=== PATIENT | female | born 1945 | race Caucasian/White ===

== ENCOUNTER → 2016-06-04 | Outpatient (CLI) | payer MEDICARE ==
--- NOTE | 2016-06-05 18:13 | Diagnostic Imaging Report ---
Bilateral screening mammogram. The current study was also evaluated with a Computer Aided Detection (CAD) system. INDICATION: Screening. No current complaints stated on the questionnaire. COMPARISON: 05/08/15. FINDINGS: The breasts are composed of scattered fibroglandular densities. There are occasional benign-appearing calcifications. Allowing for technique and positional differences, no suspicious change is seen. IMPRESSION: No significant change. ACR BI-RADS Category 2: Benign findings. Result letter will be mailed to the patient. Note: At least 10% of breast cancer is not imaged by mammography. Dictated by: Dictated on workstation # [id number]
== END ==
LOC: RAD 09:33
PROVIDERS: ATTEND Obstetrics & Gynecology
DX: Z12.31 Encounter for screening mammogram for malignant neoplasm of breast (principal)
CPT/HCPCS: 77067

== ENCOUNTER → 2017-06-26 | Outpatient (CLI) | payer MEDICARE ==
--- NOTE | 2017-06-26 18:09 | Diagnostic Imaging Report ---
INDICATION: Digital mammogram bilateral screening with 3-D tomosynthesis. This study was compared to the prior exams of 06/04/16, 05/08/15 and 03/15/14. At this time, there are no current complaints. The current study was also evaluated with a Computer Aided Detection (CAD) system. FINDINGS: There is a mild amount of fibroglandular tissue present in both breasts, similar to the prior exam. No primary or secondary sign of malignancy is noted. 3D tomographic images fail to show any sign of malignancy. IMPRESSION: There is no radiographic evidence for malignancy. ACR BI-RADS Category 1: Negative Result letter will be mailed to the patient. Note: At least 10% of breast cancer is not imaged by mammography. Dictated by: Dictated on workstation # [id number]
== END ==
LOC: RAD 07:44
PROVIDERS: ATTEND Obstetrics & Gynecology
DX: Z12.31 Encounter for screening mammogram for malignant neoplasm of breast (principal)
CPT/HCPCS: 77067

== ENCOUNTER 2018-01-23 13:15 | Outpatient (CLI) | payer MEDICARE ==
[~2018-01-23] VITALS: Ht 167.6 cm; Wt 95.3 kg
[~2018-01-23 13:15] MED LIST: ASPI-586 PO; ESTR1TAB24 PO; GLIP10TA24 PO; LEVO100T7 PO; LISI-552 PO; LORA10TA7 PO; METF-398 PO; MULT-35 PO; PARO20TA5 PO; SIMV20TA3 PO
== END 2018-01-23 13:54 | disposition home or self-care (01) ==
LOC: PREOP 13:15
PROVIDERS: ATTEND Surgery
DX: Z01.818 Encounter for other preprocedural examination (principal)

== ENCOUNTER 2018-01-27 06:50 | Day surgery (SDC) | payer MEDICARE ==
[~2018-01-27] VITALS: Ht 167.6 cm; Wt 95.3 kg
[2018-01-27] MEDS ORDERED: LACTATED RINGERS 1,000 ML IV ONE (07:03)
[2018-01-27] MEDS ORDERED: LACTATED RINGERS 1,000 ML IV STA (07:21)
[2018-01-27 07:23] VITALS: BP 141/77
[2018-01-27] MEDS ORDERED: PROPOFOL INJECTION 50 ML IV ONE (07:36)
--- NOTE | 2018-01-27 07:58 | Progress Note-Pre Operative ---
Pre-Operative Progress Note H&P Reviewed The H&P was reviewed, patient examined and no changes noted. Date Seen by Provider: Jan 27, 2018 Time Seen by Provider: 07:57 Date H&P Reviewed: Jan 27, 2018 Time H&P Reviewed: 07:57 Pre-Operative Diagnosis: screening colonoscopy, abnormal ct scan finding history MARICARMEN CHRISTY DO Jan 27, 2018 07:58
--- NOTE | 2018-01-27 08:46 | Progress Note-Post Operative ---
Post-Operative Progess Note Surgeon (s)/Industrial Sewer (s) Surgeon MARICARMEN CHRISTY DO Industrial Sewer: na Pre-Operative Diagnosis screening colonoscopy, abnormal ct scan finding history Post-Operative Diagnosis ascending colon polyp, min diverticulosis, anorrectal inflammation, internal hemorrhoids Procedure & Operative Findings Date of Procedure 01/27/18 Procedure Performed/Findings colonoscopy with hot bx polypectomy and cold biopsy anorectal junction Anesthesia Type per director of programming Estimated Blood Loss Estimated blood loss (mL): scant Specimens/Packing Specimens Removed ascending colon polyp, anorectal junction MARICARMEN CHRISTY DO Jan 27, 2018 08:46
--- NOTE | 2018-01-27 08:51 | Discharge Inst-Simple/Standard ---
Discharge Inst-Standard Patient Instructions/Follow Up Plan of Care/Instructions/FU: 2 weeks zaid Activity as Tolerated: Yes Discharge Diet: Regular Diet (high fiber) MARICARMEN CHRISTY DO Jan 27, 2018 08:51
[2018-01-27 09:00] VITALS: BP 113/62
[2018-01-27 09:20] VITALS: BP 127/69
[2018-01-27 09:29] VITALS: BP 127/69
--- NOTE | 2018-01-27 12:58 | Anesthesia-General Post-Op ---
MAC Patient Condition Mental Status/LOC: Same as Preop Cardiovascular: Satisfactory Nausea/Vomiting: Absent Respiratory: Satisfactory Pain: Controlled Complications: Absent Post Op Complications Complications None Follow Up Care/Instructions Patient Instructions None needed. Anesthesiology Discharge Order Discharge Order Patient is doing well, no complaints, stable vital signs, no apparent adverse anesthesia problems. No complications reported per nursing. RON HUNG CRNA Jan 27, 2018 12:58
--- NOTE | 2018-01-27 14:07 | OPERATIVE REPORT ---
DATE OF SERVICE: 01/27/2018 PREOPERATIVE DIAGNOSES: Screening colonoscopy, history of abnormal CT scan finding. POSTOPERATIVE DIAGNOSES: Ascending colon polyp, minimal diverticulosis, anorectal inflammation, internal hemorrhoids. PROCEDURES: Colonoscopy with hot biopsy polypectomy of ascending colon polyp and cold biopsy of anorectal junction. SURGEON: Maricarmen Ackerman DO ANESTHESIA: Per RULING MACHINE SET UP OPERATOR. ESTIMATED BLOOD LOSS: Scant. COMPLICATIONS: None. INDICATIONS: The patient is a 72-year-old female due for colonoscopy. She understands the risks and benefits of procedure and wished to proceed with procedure. Consent was signed and on the chart. DESCRIPTION OF PROCEDURE: The patient was taken to the endoscopy suite, placed in left lateral recumbent position. Timeout was performed. A digital rectal exam was performed. Large, slightly prolapsing internal hemorrhoids present. The area will be reduced. No polyps, masses or ulcerations. Scope was inserted into the rectum and advanced all the way to the cecum with minimal difficulty. Prep was adequate. Scope was then slowly retracted back. There were no polyps, masses or ulcerations in the cecum. In the ascending colon, a small polyp was present, which hot biopsy polypectomy was performed. Scope was continuously retracted back. There were no polyps, masses or ulcerations within the remainder of the ascending colon, transverse colon, descending colon. Within the sigmoid is a very minimal amount of diverticulosis present. There are no polyps, masses or ulcerations. Once in the rectum, scope was also retroflexed noting some anorectal inflammation, which cold biopsy was performed. The hemorrhoids were also noted. No other abnormal findings. Scope was returned to its normal position, slowly withdrawn until completely removed. The patient tolerated the procedure well without any complications. She was taken to recovery room in stable condition. RECOMMENDATIONS: The patient will need repeat colonoscopy in 5 years. Any issues before that, will be seen at that time. Also would recommend high-fiber diet due to diverticulosis. The patient also with fairly significant hemorrhoids. We will discuss if she elect to continue with the . We will discuss surgical options. Further recommendations pending biopsy results. Job ID: [id number] DocumentID: [id number] Dictated Date: 01/27/2018 08:49:35 Body Component Engineer Date: 01/27/2018 11:29:45 Dictated By: MARICARMEN ACKERMAN DO
== END 2018-01-27 09:29 | disposition home or self-care (01) ==
LOC: ENDO 06:50
PROVIDERS: ATTEND Surgery
DX: Z12.11 Encounter for screening for malignant neoplasm of colon (principal); D12.2 Benign neoplasm of ascending colon; K57.30 Diverticulosis of large intestine without perforation or abscess without bleeding; K62.89 Other specified diseases of anus and rectum; K64.8 Other hemorrhoids; I10 Essential (primary) hypertension; E11.9 Type 2 diabetes mellitus without complications; E03.9 Hypothyroidism, unspecified; E66.9 Obesity, unspecified; Z68.33 Body mass index [BMI] 33.0-33.9, adult; Z79.82 Long term (current) use of aspirin; Z79.84 Long term (current) use of oral hypoglycemic drugs; Z79.899 Other long term (current) drug therapy
CPT/HCPCS: 88305

== ENCOUNTER → 2018-03-03 | Outpatient (CLI) | payer MEDICARE ==
--- NOTE | 2018-03-03 18:17 | Diagnostic Imaging Report ---
EXAMINATION: Ultrasound of the soft tissues head and neck. INDICATION: Neck mass. FINDINGS: By history, the patient has a palpable abnormality in the medial right supraclavicular region. The ultrasound examination of this area does show that there is a 3.7 x 2.3 x 2.9 cm soft tissue mass in this area. The precise etiology of this finding is not certain, but the possibility that this is neoplastic in nature should be the primary concern. I would recommend that CT of the neck and chest be performed for further study. The mass in question does not communicate with the thyroid gland. The thyroid gland is generally unremarkable and seems similar to the prior thyroid ultrasound exam of 12/16/2007. IMPRESSION: 1. There is a 3.7 x 2.3 x 2.9 cm mass in the area of the patient's palpable abnormality in the right supraclavicular region. The possibility that this mass is neoplastic in nature should be the primary concern. Recommendations as above. 2. There is no other mass identified. 3. The thyroid gland is generally unremarkable. Dictated by: Dictated on workstation # [id number]
== END ==
LOC: RAD 13:44
PROVIDERS: ATTEND Surgery
DX: R22.1 Localized swelling, mass and lump, neck (principal)
CPT/HCPCS: 76536

== ENCOUNTER → 2018-03-06 | Outpatient (CLI) | payer MEDICARE ==
[~2018-03-06] MED LIST changes: +IOHEXOL 350 MG/ML 100 ML (OMNIPAQUE 350) VIAL IV ONE; +NS 100 ML (IVPB) BAG IV ONE; +RECEIVED CONTRAST (Hold Metformin) IV SCH
[2018-03-06 15:05] LABS: BUN/CREATININE RATIO 20; CREATININE SERUM 0.59 MG/DL (0.60-1.30); GFR ESTIMATED > 60
--- NOTE | 2018-03-06 16:37 | Diagnostic Imaging Report ---
CLINICAL INDICATION: Patient with palpable neck mass. EXAM: CT scan of the neck and chest performed with 100 cc of Omnipaque 350 IV contrast. Coronal reformatted images of the neck and coronal and sagittal reformatted images of the chest were created to better evaluate anatomy. COMPARISON: Ultrasound of the neck soft tissue dated 03/03/2018. FINDINGS: There is significant soft tissue prominence in the region of the right sternoclavicular region which demonstrates peripheral enhancement and central low density. This is seen in the area of the BB marker. This area measures roughly 3.7 cm x 1.9 cm x 3.2 cm (AP x Trans x CC) . There is bony sclerosis, cortical thickening, cortical irregularity and spurring involving the medial head of the right clavicle. There is small bony fragmentation seen. There is also sclerosis involving the manubrium in the region of the sternoclavicular joint. There is no significant adjacent soft tissue fat stranding. These findings are most concerning for advanced degenerative disease with a joint effusion involving the right sternoclavicular joint. Chronic septic joint can't be completely excluded. CT NECK: Limited visualization of intracranial structures are unremarkable. The nasopharynx, oropharynx, hypopharynx, and laryngeal soft tissue structures are symmetric and unremarkable. Thyroid gland is small in size, but otherwise unremarkable. Salivary glands are unremarkable. The neck arteriovascular structures show no significant abnormality. There is no significant neck lymphadenopathy. There is cervical spine degenerative disease with vertebral body spurs and facet arthropathy. CT CHEST: There is minimal dependent atelectasis involving the posterior aspects of both lungs. Otherwise, lungs are clear. There is no pleural effusion or pneumothorax. Pulmonary bronchi are unremarkable. There is no mediastinal or axillary lymphadenopathy. The visualized mediastinal vascular structures show no gross abnormality as visualized. The visualized upper abdominal structures are unremarkable. There is degenerative spurs seen throughout the thoracic spine. IMPRESSION: 1: There is enlargement and soft tissue thickening of the right sternoclavicular joint with peripheral enhancement and central low density. There is associated bony sclerosis, irregularity and spurring of the right sternoclavicular bony regions. There is no significant adjacent fat stranding. These findings are most concerning for advanced degenerative disease with joint effusion. A chronic septic joint can't be completely excluded. 2: Small thyroid gland. Otherwise, the remainder of the neck structures are unremarkable. There is no evidence of a neck soft tissue mass. There is no lymphadenopathy. 3: Unremarkable CT scan of the chest. 4: Degenerative disease of the cervical spine and thoracic spine. Dictated by: Dictated on workstation # [id number]
== END ==
LOC: RAD 14:24
PROVIDERS: ATTEND Surgery
DX: M47.812 Spondylosis without myelopathy or radiculopathy, cervical region (principal); M47.814 Spondylosis without myelopathy or radiculopathy, thoracic region; M25.411 Effusion, right shoulder; M89.9 Disorder of bone, unspecified
CPT/HCPCS: 36415; 70491; 71260; 82565; 84520

== ENCOUNTER 2018-06-18 05:36 | Outpatient (CLI) | payer MEDICARE ==
[~2018-06-18] VITALS: Ht 167.6 cm; Wt 99.3 kg
[~2018-06-18 05:36] MED LIST changes: -IOHEXOL 350 MG/ML 100 ML (OMNIPAQUE 350) VIAL IV ONE; -NS 100 ML (IVPB) BAG IV ONE; -RECEIVED CONTRAST (Hold Metformin) IV SCH
[2018-06-18] MEDS ORDERED: CALC-696 PO (13:54)
[2018-06-18] MEDS ORDERED: MULT1TAB69 PO (13:54)
== END 2018-06-18 13:57 | disposition home or self-care (01) ==
LOC: PREOP 05:36
PROVIDERS: ATTEND Urology
DX: Z01.818 Encounter for other preprocedural examination (principal)

== ENCOUNTER → 2018-06-19 | Outpatient (CLI) | payer MEDICARE ==
[~2018-06-19] MED LIST changes: +CALC-696 PO; +MULT1TAB69 PO
--- NOTE | 2018-06-19 16:59 | Diagnostic Imaging Report ---
PROCEDURE: CT abdomen and pelvis without contrast. TECHNIQUE: Multiple contiguous axial images were obtained through the abdomen and pelvis without the use of intravenous contrast. Auto Exposure Controls were utilized during the CT exam to meet ALARA standards for radiation dose reduction. INDICATION: Left nephrolithiasis FINDINGS: The lung bases are clear. The liver appears normal. Gallbladder is present. The pancreas is normal. The spleen is not enlarged. There is a 2 mm calculus and a ventral interpolar calyx of the right kidney. There is a 13 mm oval calculus in the left renal pelvis. There is no hydronephrosis. Ureters are clear. Urinary bladder is normal. There is no intraperitoneal free air or free fluid. There is a large amount of stool in the colon. The small bowel is not dilated. The appendix is not seen. Uterus is surgically absent. IMPRESSION: Bilateral nephrolithiasis. No evidence of obstruction. Dictated by: Dictated on workstation # [id number]
--- NOTE | 2018-06-19 17:00 | Diagnostic Imaging Report ---
INDICATION: Left nephrolithiasis FINDINGS: There is a 14 mm smooth oval opaque calculus in the left renal pelvis. Bowel gas pattern is normal. There are degenerative changes in the lumbar spine. IMPRESSION: Left nephrolithiasis. Dictated by: Dictated on workstation # [id number]
== END ==
LOC: RAD 14:27
PROVIDERS: ATTEND Urology
DX: N20.0 Calculus of kidney (principal); Z90.710 Acquired absence of both cervix and uterus
CPT/HCPCS: 74018; 74176

== ENCOUNTER 2018-06-23 07:21 | Day surgery (SDC) | payer MEDICARE ==
[2018-06-23] VITALS (9 sets, daily range): BP systolic 100–133; BP diastolic 55–70
[~2018-06-23] VITALS: Ht 167.6 cm; Wt 96.8 kg
--- OUTSIDE RECORDS SUMMARY | 2018-06-23 07:25 | XMS REPORT | Continuity of Care Document ---
Author Organization Unknown Address Unknown Allergies Active Description Code Type Severity Reaction Onset Reported/Identified Relationship to Patient Clinical Status Yes No Known Drug Allergies [id number] Drug Allergy Unknown N/A 01/23/2018 Medications There is no data. Problems Date Dx Coded Attending Type Code Diagnosis Diagnosed By 03/14/2014 Ot V76.12 03/14/2014 KEITH SHER, VINNIE Castellanos Ot V76.12 03/14/2014 DELFINA SHER, JOSS R Ot 564.00 03/14/2014 DELFINA SHER, JOSS R Ot 592.0 03/14/2014 DELFINA SHER, JOSS R Ot 787.02 03/14/2014 DELFINA SHER, JOSS R Ot 787.3 03/14/2014 DELFINA SHER, JOSS R Ot 789.04 04/12/2014 KEITH SHER, VINNIE Castellanos Ot V76.12 07/01/2014 Ot V76.12 07/01/2014 Ot V76.12 07/03/2014 Ot V76.12 07/03/2014 Ot V76.12 05/08/2015 Ot V76.12 05/08/2015 KEITH SHER, VINNIE Catsellanos Ot V76.12 05/08/2015 DELFINA SHER, JOSS R Ot 564.00 05/08/2015 DELFINA SHER, JOSS R Ot 592.0 05/08/2015 DELFINA SHER, JOSS R Ot 787.02 05/08/2015 DELFINA SHER, JOSS R Ot 787.3 05/08/2015 DELFINA SHER, JOSS R Ot 789.04 05/08/2015 KEITH SHER, VINNIE Castellanos Ot V76.12 05/08/2015 Ot V76.12 05/08/2015 KEITH SHER, VINNIE Castellanos Ot V76.12 05/08/2015 DELFINA SHER, JOSS R Ot 564.00 05/08/2015 DELFINA SHER, JOSS R Ot 592.0 05/08/2015 DELFINA SHER, JOSS R Ot 787.02 05/08/2015 DELFINA SHER, JOSS R Ot 787.3 05/08/2015 DELFINA SHER, JOSS R Ot 789.04 05/08/2015 KEITH SHER, VINNIE Castellanos Ot V76.12 05/09/2015 KEITH SHER, VINNIE Castellanos Ot Z12.31 05/09/2015 KEITH SHER, VINNIE Castellanos Ot Z12.31 05/30/2015 KEITH SHER, VINNIE Castellanos Ot Z12.31 11/10/2015 Ot V76.12 OTH SCREEN MAMMO-MALIGN NEOPLASM OF RENATO 06/04/2016 Ot V76.12 OTH SCREEN MAMMO-MALIGN NEOPLASM OF RENATO 06/04/2016 KEITH SHER, VINNIE Castellanos Ot V76.12 OTH SCREEN MAMMO-MALIGN NEOPLASM OF RENATO 06/04/2016 DELFINA SHER, JOSS R Ot 564.00 UNSPEC CONSTIPATION 06/04/2016 DELFINA SHER, JOSS R Ot 592.0 CALCULUS OF KIDNEY 06/04/2016 DELFINA SHER, JOSS R Ot 787.02 NAUSEA ALONE 06/04/2016 DELFINA SHER, JOSS R Ot 787.3 FLATUL/ERUCTAT/GAS PAIN 06/04/2016 DELFINA SHER, JOSS R Ot 789.04 ABDOMINAL PAIN, LEFT LOWER QUADRANT 06/04/2016 KEITH SHER, VINNIE Castellanos Ot V76.12 OTH SCREEN MAMMO-MALIGN NEOPLASM OF RENATO 06/04/2016 KEITH SHER, VINNIE Castellanos Ot Z12.31 ENCNTR SCREEN MAMMOGRAM FOR MALIGNANT NE 06/04/2016 Ot V76.12 OTH SCREEN MAMMO-MALIGN NEOPLASM OF RENATO 06/04/2016 VINNIE PARKER MD Ot V76.12 OTH SCREEN MAMMO-MALIGN NEOPLASM OF RENATO 06/04/2016 JOSS MATHIS MD R Ot 564.00 UNSPEC CONSTIPATION 06/04/2016 DELFINA SHER, JOSS R Ot 592.0 CALCULUS OF KIDNEY 06/04/2016 JOSS MATHIS MD R Ot 787.02 NAUSEA ALONE 06/04/2016 JOSS MATHIS MD R Ot 787.3 FLATUL/ERUCTAT/GAS PAIN 06/04/2016 JOSS MATHIS MD R Ot 789.04 ABDOMINAL PAIN, LEFT LOWER QUADRANT 06/04/2016 VINNIE PARKER MD, Ot V76.12 OTH SCREEN MAMMO-MALIGN NEOPLASM OF RENATO 06/04/2016 VINNIE PARKER MD, Ot Z12.31 ENCNTR SCREEN MAMMOGRAM FOR MALIGNANT NE 06/04/2016 VINNIE PARKER MD, Ot Z12.31 ENCNTR SCREEN MAMMOGRAM FOR MALIGNANT NE 06/04/2016 VINNIE PARKER MD, Ot Z12.31 ENCNTR SCREEN MAMMOGRAM FOR MALIGNANT NE 06/04/2016 VINNIE PARKER MD, Ot Z12.31 ENCNTR SCREEN MAMMOGRAM FOR MALIGNANT NE 06/05/2016 VINNIE PARKER MD, Ot Z12.31 ENCNTR SCREEN MAMMOGRAM FOR MALIGNANT NE 07/01/2016 VINNIE PARKER MD, Ot Z12.31 ENCNTR SCREEN MAMMOGRAM FOR MALIGNANT NE 12/25/2016 Ot V76.12 OTH SCREEN MAMMO-MALIGN NEOPLASM OF RENATO 12/25/2016 VINNIE PARKER MD, Ot V76.12 OTH SCREEN MAMMO-MALIGN NEOPLASM OF RENATO 12/25/2016 JOSS MATHIS MD R Ot 564.00 UNSPEC CONSTIPATION 12/25/2016 JOSS MATHIS MD R Ot 592.0 CALCULUS OF KIDNEY 12/25/2016 JOSS MATHIS MD R Ot 787.02 NAUSEA ALONE 12/25/2016 JOSS MATHIS MD R Ot 787.3 FLATUL/ERUCTAT/GAS PAIN 12/25/2016 JOSS MATHIS MD R Ot 789.04 ABDOMINAL PAIN, LEFT LOWER QUADRANT 12/25/2016 VINNIE PARKER MD, Ot V76.12 OTH SCREEN MAMMO-MALIGN NEOPLASM OF RENATO 12/25/2016 VINNIE PARKER MD, Ot Z12.31 ENCNTR SCREEN MAMMOGRAM FOR MALIGNANT NE 12/25/2016 VINNIE PARKER MD, Ot Z12.31 ENCNTR SCREEN MAMMOGRAM FOR MALIGNANT NE 01/17/2017 DELFINA SHER, JOSS R Ot N20.0 CALCULUS OF KIDNEY 01/22/2017 JOSS MATHIS MD R Ot N20.0 CALCULUS OF KIDNEY 06/17/2017 VINNIE PARKER MD, Ot Z12.31 ENCNTR SCREEN MAMMOGRAM FOR MALIGNANT NE 06/25/2017 VINNIE PARKER MD, Ot Z12.31 ENCNTR SCREEN MAMMOGRAM FOR MALIGNANT NE 06/27/2017 VINNIE PARKER MD, Ot Z12.31 ENCNTR SCREEN MAMMOGRAM FOR MALIGNANT NE 07/16/2017 VINNIE PARKER MD, Ot Z12.31 ENCNTR SCREEN MAMMOGRAM FOR MALIGNANT NE 01/21/2018 MARICARMEN CHRISTY DO Ot Z01.818 ENCOUNTER FOR OTHER PREPROCEDURAL EXAMIN 01/23/2018 MARICARMEN CHRISTY DO Ot Z01.818 ENCOUNTER FOR OTHER PREPROCEDURAL EXAMIN 01/23/2018 MARICARMEN CHRISTY DO Ot Z01.818 ENCOUNTER FOR OTHER PREPROCEDURAL EXAMIN 01/27/2018 VINNIE PARKER MD, Ot V76.12 OTH SCREEN MAMMO-MALIGN NEOPLASM OF RENATO 01/27/2018 DELFINA SHER, JOSS R Ot 564.00 UNSPEC CONSTIPATION 01/27/2018 DELFINA SHER, JOSS R Ot 592.0 CALCULUS OF KIDNEY 01/27/2018 EDEN MATHIS MDYD R Ot 787.02 NAUSEA ALONE 01/27/2018 DELFINA SHER JOSS R Ot 787.3 FLATUL/ERUCTAT/GAS PAIN 01/27/2018 JOSS MATHIS MD R Ot 789.04 ABDOMINAL PAIN, LEFT LOWER QUADRANT 01/27/2018 VINNIE PARKER MD, Ot V76.12 OTH SCREEN MAMMO-MALIGN NEOPLASM OF RENATO 01/27/2018 VINNIE PARKER MD, Ot Z12.31 ENCNTR SCREEN MAMMOGRAM FOR MALIGNANT NE 01/27/2018 VINNIE PARKER MD, Ot Z12.31 ENCNTR SCREEN MAMMOGRAM FOR MALIGNANT NE 01/27/2018 DELFINA SHER, JOSS R Ot N20.0 CALCULUS OF KIDNEY 01/27/2018 KEITH SHER, VINNIE Castellanos Ot Z12.31 ENCNTR SCREEN MAMMOGRAM FOR MALIGNANT NE 01/27/2018 MARICARMEN CHRISTY DO Ot D12.2 BENIGN NEOPLASM OF ASCENDING COLON 01/27/2018 MARICARMEN CHRISTY DO Ot E03.9 HYPOTHYROIDISM, UNSPECIFIED 01/27/2018 MARICARMEN CHRISTY DO Ot E11.9 TYPE 2 DIABETES MELLITUS WITHOUT COMPLIC 01/27/2018 MARICARMEN CHRISTY DO Ot E66.9 OBESITY, UNSPECIFIED 01/27/2018 MARICARMEN CHRISTY DO Ot I10 ESSENTIAL (PRIMARY) HYPERTENSION 01/27/2018 MARICARMEN CHRISTY DO Ot K57.30 DVRTCLOS OF LG INT W/O PERFORATION OR AB 01/27/2018 MARICARMEN CHRISTY DO Ot K62.89 OTHER SPECIFIED DISEASES OF ANUS AND REC 01/27/2018 MARICARMEN CHRISTY DO Ot K64.8 OTHER HEMORRHOIDS 01/27/2018 MARICARMEN CHRISTY DO Ot Z12.11 ENCOUNTER FOR SCREENING FOR MALIGNANT NE 01/27/2018 MARICARMEN CHRISTY DO Ot Z68.33 BODY MASS INDEX (BMI) 33.0-33.9, ADULT 01/27/2018 MARICARMEN CHRISTY DO Ot Z79.82 [facility] (CURRENT) USE OF ASPIRIN 01/27/2018 MARICARMEN CHRISTY DO Ot Z79.84 [facility] (CURRENT) USE OF ORAL HYPOGLYC 01/27/2018 MARICARMEN CHRISTY DO Ot Z79.899 OTHER [facility] (CURRENT) DRUG THERAPY 01/30/2018 MARICARMEN CHRISTY DO Ot 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 BENIGN NEOPLASM OF ASCENDING COLON 01/30/2018 MARICARMEN CHRISTY DO Ot E03.9 HYPOTHYROIDISM, UNSPECIFIED 01/30/2018 MARICARMEN CHRISTY DO Ot E11.9 TYPE 2 DIABETES MELLITUS WITHOUT COMPLIC 01/30/2018 MARICARMEN CHRISTY DO Ot E66.9 OBESITY, UNSPECIFIED 01/30/2018 MARICARMEN CHRISTY DO Ot I10 ESSENTIAL (PRIMARY) HYPERTENSION 01/30/2018 MARICARMEN CHRISTY DO Ot K57.30 DVRTCLOS OF LG INT W/O PERFORATION OR AB 01/30/2018 MARICARMEN CHRISTY DO Ot K62.89 OTHER SPECIFIED DISEASES OF ANUS AND REC 01/30/2018 MARICARMEN CHRISTY DO Ot K64.8 OTHER HEMORRHOIDS 01/30/2018 MARICARMEN CHRISTY DO Ot Z12.11 ENCOUNTER FOR SCREENING FOR MALIGNANT NE 01/30/2018 MARICARMEN CHRISTY DO Ot Z68.33 BODY MASS INDEX (BMI) 33.0-33.9, ADULT 01/30/2018 MARICARMEN CHRISTY DO Ot Z79.82 [facility] (CURRENT) USE OF ASPIRIN 01/30/2018 MARICARMEN CHRISTY DO Ot Z79.84 [facility] (CURRENT) USE OF ORAL HYPOGLYC 01/30/2018 MARICARMEN CHRISTY DO Ot Z79.899 OTHER [facility] (CURRENT) DRUG THERAPY 03/04/2018 MARICARMEN CHRISTY DO Ot R22.1 LOCALIZED SWELLING, MASS AND LUMP, NECK 03/09/2018 MARICARMEN CHRISTY DO Ot R22.1 LOCALIZED SWELLING, MASS AND LUMP, NECK 03/09/2018 MARICARMEN CHRISTY DO Ot M25.411 EFFUSION, RIGHT SHOULDER 03/09/2018 MARICARMEN CHRISTY DO Ot M47.812 SPONDYLOSIS W/O MYELOPATHY OR RADICULOPA 03/09/2018 MARICARMEN CHRISTY DO Ot M47.814 SPONDYLOSIS W/O MYELOPATHY OR RADICULOPA 03/09/2018 MARICARMEN CHRISTY DO Ot M89.9 DISORDER OF BONE, UNSPECIFIED 03/12/2018 MARICARMEN CHRISTY DO Ot M25.411 EFFUSION, RIGHT SHOULDER 03/12/2018 MARICARMEN CHRISTY DO Ot M47.812 SPONDYLOSIS W/O MYELOPATHY OR RADICULOPA 03/12/2018 MARICARMEN CHRISTY DO Ot M47.814 SPONDYLOSIS W/O MYELOPATHY OR RADICULOPA 03/12/2018 MARICARMEN CHRISTY DO Ot M89.9 DISORDER OF BONE, UNSPECIFIED 03/30/2018 MARICARMEN CHRISTY DO Ot R22.1 LOCALIZED SWELLING, MASS AND LUMP, NECK 03/31/2018 MARICARMEN CHRISTY DO Ot M25.411 EFFUSION, RIGHT SHOULDER 03/31/2018 MARICARMEN CHRISTY DO Ot M47.812 SPONDYLOSIS W/O MYELOPATHY OR RADICULOPA 03/31/2018 CHRISTY MARICARMEN VANG Ot M47.814 SPONDYLOSIS W/O MYELOPATHY OR RADICULOPA 03/31/2018 CHRISTY MARICARMEN VANG Ot M89.9 DISORDER OF BONE, UNSPECIFIED 04/01/2018 CHRISTY MARICARMEN VANG Ot R22.1 LOCALIZED SWELLING, MASS AND LUMP, NECK 04/10/2018 MARICARMEN CHRISTY DO Ot M25.411 EFFUSION, RIGHT SHOULDER 04/10/2018 MARICARMEN CHRISTY DO Ot M47.812 SPONDYLOSIS W/O MYELOPATHY OR RADICULOPA 04/10/2018 MARICARMEN CHRISTY DO Ot M47.814 SPONDYLOSIS W/O MYELOPATHY OR RADICULOPA 04/10/2018 CHRISTY MARICARMEN VANG Ot M89.9 DISORDER OF BONE, UNSPECIFIED Procedures There is no data. Results Test Result Range [id number] - 03/06/18 14:30 Serum or plasma urea nitrogen measurement (mass/volume) 12 mg/dL 7-18 Serum or plasma creatinine measurement (mass/volume) 0.59 mg/dL 0.60-1.30 Serum or plasma urea nitrogen/creatinine mass ratio 20 NRG Serum or plasma creatinine measurement with calculation of estimated glomerular filtration rate > NRG Encounters ACCT No. Visit Date/Time Discharge Status Pt. Type Provider Facility Loc./Unit Complaint [id number] 03/06/2018 14:24:00 03/06/2018 23:59:59 CLS Outpatient MARICARMEN CHRISTY DO [facility] RAD NECK MASS [id number] 03/03/2018 13:44:00 03/03/2018 23:59:59 CLS Outpatient MARICARMEN CHRISTY DO [facility] RAD NECK MASS [id number] 01/27/2018 06:50:00 01/27/2018 09:29:00 DIS Outpatient MARICARMEN CHRISTY DO [facility] ENDO SCREENING [id number] 01/23/2018 13:15:00 01/23/2018 13:54:00 DIS Outpatient MARICARMEN CHRISTY DO [facility] PREOP COLONOSCOPY [id number] 06/26/2017 07:44:00 06/26/2017 23:59:59 CLS Outpatient VINNIE PARKER MD [facility] RAD SCREENING [id number] 12/26/2016 12:14:00 12/26/2016 23:59:59 CLS Outpatient JOSS MATHIS MD [facility] RAD LLQ ABD PAIN [id number] 06/04/2016 09:33:00 06/04/2016 23:59:59 CLS Outpatient VINNIE PARKER MD [facility] RAD ROUTINE SCREENING [id number] 05/08/2015 14:49:00 05/08/2015 23:59:59 CLS Outpatient VINNIE PARKER MD [facility] RAD SCREENING [id number] 03/15/2014 10:27:00 03/15/2014 23:59:59 CLS Outpatient VINNIE PARKER MD [facility] RAD SCREENING [id number] 08/19/2013 14:05:00 08/19/2013 23:59:59 CLS Outpatient JOSS MATHIS MD [facility] RAD LLQ PAIN [id number] 01/22/2013 10:41:00 01/22/2013 23:59:59 CLS Outpatient VINNIE PARKER MD [facility] RAD SCREENING [id number] 11/13/2011 09:39:00 Document Registration [id number] 09/14/2010 08:34:00 Document Registration [id number] 08/18/2009 09:33:00 Document Registration [email or web address] 03/26/2014 03:58:58 ACT Document Registration
[2018-06-23] MEDS ORDERED: LACTATED RINGERS 1,000 ML IV PRN (07:31)
[2018-06-23] MEDS ORDERED: cefTRIAXone FOR IV USE 1,000 MG in WATER (STERILE) FOR INJECTION 10 ML IV ONE (07:45)
[2018-06-23] MEDS ORDERED: WATER (STERILE) FOR INJECTION 10 ML ONE (07:47)
[2018-06-23] MEDS ORDERED: cefTRIAXone 1,000 MG IV (ROCEPHIN) VIAL ONE (07:47)
--- NOTE | 2018-06-23 07:47 | Progress Note-Pre Operative ---
Pre-Operative Progress Note H&P Reviewed The H&P was reviewed, patient examined and no changes noted. Date Seen by Provider: June 23, 2018 Time Seen by Provider: 07:47 Date H&P Reviewed: June 23, 2018 Time H&P Reviewed: 07:47 Pre-Operative Diagnosis: LT RENAL STONE NILTON KINGSTON MD June 23, 2018 07:47
[2018-06-23] MEDS ORDERED: ONDANSETRON 4 MG/2 ML (SDV) Z0FRAN ONE (07:52)
[2018-06-23] MEDS ORDERED: LIDOCAINE PF 2% 5 ML (XYLOCAINE) VIAL ONE (07:52)
[2018-06-23] MEDS ORDERED: proPOfol 200 MG/20 ML (DIPRIVAN) VIAL IV ONE (07:52)
[2018-06-23] MEDS ORDERED: MIDAZOLAM 2 MG/2 ML (VERSED) VIAL ONE (07:53)
[2018-06-23] MEDS ORDERED: fentaNYL INJECTION 100 MCG/2 ML AMP ONE (07:53)
[2018-06-23] MEDS ORDERED: CATHETER FLUSH 10 ML SYR IV PRN (08:00)
--- NOTE | 2018-06-23 08:13 | Progress Note-Post Operative ---
Post-Operative Progess Note Surgeon (s)/Oil And Gas Superintendent (s) Surgeon NILTON KINGSTON MD Oil And Gas Superintendent: NONE Pre-Operative Diagnosis LT RENAL STONE Post-Operative Diagnosis SAME Procedure & Operative Findings Date of Procedure 06/23/18 Procedure Performed/Findings LT ESWL Anesthesia Type GENERAL Estimated Blood Loss Estimated blood loss (mL): NONE Specimens/Packing Specimens Removed NONE Packing: NONE NILTON KINGSTON MD June 23, 2018 08:13
--- NOTE | 2018-06-23 08:15 | Discharge Inst-Urology ---
Discharge Inst-Urology Discharge Medications New, Converted, or Re-newed RX: RX on Chart Patient Instructions/Follow Up Plan Please make appointment to been seen in office Thursday 07/06, LIZZETTE prior to it. KUB on way home Post ESWL instructions Stay off ASA Increase oral fluids for 48 hours and then as needed. Diet and Activity as tolerated. If questions or concerns contact your physician Or seek help at emergency department. NILTON KINGSTON MD June 23, 2018 08:14
[2018-06-23] MEDS ORDERED: TAMS0.4C98 PO (08:22)
[2018-06-23] MEDS ORDERED: HYDR-3870 PO (08:22)
[2018-06-23] MEDS ORDERED: NITR-65 PO (08:22)
[2018-06-23] MEDS ORDERED: SEVOFLURANE (ULTANE) 15 ML INHAL SOLN ONE (08:28)
--- NOTE | 2018-06-23 08:28 | Diagnostic Imaging Report ---
INDICATION: History of kidney stone. COMPARISON: 06/19/2018 FINDINGS: Two supine radiographic views of the abdomen were obtained and again demonstrate large calculus projecting of the inferior pole of the left kidney. Patient's known punctate right renal calculi are not well visualized. Note is made of multiple flecks of hyperdensity scattered about the colon. Large amount of air and stool is also noted within the colon. Small bowel loops are nondistended. No unexpected radiopaque foreign bodies are seen. IMPRESSION: 1. Stable dominant left renal calculus. 2. Known punctate right renal calculi are inconspicuous. 3. Large amount of colonic air and stool. Please correlate for constipation. Dictated by: Dictated on workstation # [id number]
[2018-06-23] MEDS ORDERED: KETOROLAC 30 MG/ML VIAL ONE (09:18)
[2018-06-23] MEDS ORDERED: FUROSEMIDE 40 MG/4 ML INJ (LASIX) ONE (09:18)
[2018-06-23] MEDS ORDERED: morphine INJ 10 MG/ML 1ML (SYR OR VIAL) IVP ONE (09:45)
[2018-06-23] MEDS ORDERED: ONDANSETRON 4 MG/2 ML (SDV) Z0FRAN IVP PRN (09:45)
--- NOTE | 2018-06-23 12:19 | Anesthesia-General Post-Op ---
General Patient Condition Mental Status/LOC: Same as Preop Cardiovascular: Satisfactory Nausea/Vomiting: Absent Respiratory: Satisfactory Pain: Controlled Complications: Absent Post Op Complications Complications None Follow Up Care/Instructions Patient Instructions None needed. Anesthesia/Patient Condition Patient Condition Patient is doing well, no complaints, stable vital signs, no apparent adverse anesthesia problems. No complications reported per nursing. DEBBIE SOSA CRNA June 23, 2018 12:19
--- NOTE | 2018-06-23 13:37 | OPERATIVE REPORT ---
DATE OF SERVICE: 06/23/2018 PREOPERATIVE DIAGNOSIS: Left renal pelvis stone. POSTOPERATIVE DIAGNOSIS: Left renal pelvis stone. OPERATION PERFORMED: Left ESWL. SURGEON: Lj Kingston MD ANESTHESIA: General. COMPLICATIONS: None. DESCRIPTION OF PROCEDURE: Under satisfactory general anesthesia, the patient in supine position on the ESWL table, the left renal pelvic stone was localized. Shocks were delivered at kV of 4. Total of 3000 shocks were delivered. The patient received 40 mg of Lasix and 30 mg of Toradol IV at the end of the procedure. She tolerated the procedure and anesthesia well and was sent to recovery room in stable condition. PLAN: We will see the effect of this ESWL. It this achieved some good results, but needed another one, we will do that in 2 weeks and if it did not achieve good results, we will again offer the patient to go to [facility] for either a percutaneous lithotomy or a flexible ureteropyelolithotomy. Job ID: [id number] DocumentID: [id number] Dictated Date: 06/23/2018 09:14:41 Loss Prevention Agent Date: 06/23/2018 13:37:00 Dictated By: LJ KINGSTON MD
--- NOTE | 2018-06-23 14:05 | Diagnostic Imaging Report ---
Supine abdomen at 11:11 a.m. INDICATION: Post ESWL FINDINGS: noted on the exam performed earlier at 7:52 a.m. There is a 1.4 cm calculus overlying the left kidney. This finding is unchanged when compared to the previous study. The minute calcific density scattered over the right and left abdomen seen previously are unchanged. The calcific densities low in the pelvis also appears stable. There is no acute abnormality identified. IMPRESSION: 1. The 1.4 cm calculus overlying the left kidney seen previous is again evident and essentially no different in appearance or position. 2. The overall appearance of the abdomen is stable as well. Dictated by: Dictated on workstation # [id number]
== END 2018-06-23 11:45 | disposition home or self-care (01) ==
LOC: SDC 07:21
PROVIDERS: ATTEND Urology
DX: N20.0 Calculus of kidney (principal); I10 Essential (primary) hypertension; E11.9 Type 2 diabetes mellitus without complications; F41.9 Anxiety disorder, unspecified; Z79.82 Long term (current) use of aspirin; Z79.84 Long term (current) use of oral hypoglycemic drugs; Z79.899 Other long term (current) drug therapy
CPT/HCPCS: 74018; 82962; 87081

== ENCOUNTER → 2018-07-06 | Outpatient (CLI) | payer MEDICARE ==
[~2018-07-06] MED LIST changes: +HYDR-3870 PO; +METH850P3 PO; +NITR-65 PO; +TAMS0.4C98 PO
--- NOTE | 2018-07-06 16:09 | Diagnostic Imaging Report ---
INDICATION: Left renal stone. Time of exam 12:26 p.m. COMPARISON: Correlation is made with prior abdominal radiograph from 06/23/2018. FINDINGS: Calculus overlying the medial aspect of the left renal shadow is again seen and appears unchanged. No other radiopaque urinary tract calculi are seen. Moderate stool throughout the colon is noted. IMPRESSION: Stable KUB when compared with exam from 06/23/2018. Dictated by: Dictated on workstation # [id number]
== END ==
LOC: RAD 12:18
PROVIDERS: ATTEND Urology
DX: N20.0 Calculus of kidney (principal)
CPT/HCPCS: 74018

== ENCOUNTER 2018-07-07 05:41 | Outpatient (CLI) | payer MEDICARE ==
[~2018-07-07] VITALS: Ht 167.6 cm; Wt 96.8 kg
[~2018-07-07 05:41] MED LIST changes: -METH850P3 PO
[2018-07-07] MEDS ORDERED: METH850P3 PO (15:31)
[2018-07-08] MEDS ORDERED: TAMS0.4C98 PO (08:34)
[2018-07-08] MEDS ORDERED: NITR-65 PO (08:34)
== END 2018-07-07 15:39 | disposition home or self-care (01) ==
LOC: PREOP 05:41
PROVIDERS: ATTEND Urology
DX: Z01.818 Encounter for other preprocedural examination (principal)

== ENCOUNTER 2018-07-08 06:00 | Day surgery (SDC) | payer MEDICARE ==
[2018-07-08] VITALS (11 sets, daily range): BP systolic 117–154; BP diastolic 55–77
[~2018-07-08] VITALS: Ht 167.6 cm; Wt 96.8 kg
[~2018-07-08 06:00] MED LIST changes: +METH850P3 PO
[2018-07-08] MEDS ORDERED: ONDANSETRON 4 MG/2 ML (SDV) Z0FRAN ONE (06:45)
[2018-07-08] MEDS ORDERED: proPOfol 200 MG/20 ML (DIPRIVAN) VIAL IV ONE (06:45)
[2018-07-08] MEDS ORDERED: SEVOFLURANE (ULTANE) 15 ML INHAL SOLN ONE ×2 (06:45→07:36)
[2018-07-08] MEDS ORDERED: MIDAZOLAM 2 MG/2 ML (VERSED) VIAL ONE (06:45)
[2018-07-08] MEDS ORDERED: fentaNYL INJECTION 100 MCG/2 ML AMP ONE (06:45)
[2018-07-08] MEDS ORDERED: DEXAMETHASONE 10 MG/ML (DECADRON) 1 ML VIAL ONE (06:45)
[2018-07-08] MEDS ORDERED: LIDOCAINE PF 2% 5 ML (XYLOCAINE) VIAL ONE (06:45)
[2018-07-08] MEDS ORDERED: cefTRIAXone 1,000 MG IV (ROCEPHIN) VIAL ONE (06:54)
[2018-07-08] MEDS ORDERED: cefTRIAXone FOR IV USE 1,000 MG in WATER (STERILE) FOR INJECTION 10 ML IV ONE (07:00)
--- NOTE | 2018-07-08 07:05 | Progress Note-Pre Operative ---
Pre-Operative Progress Note H&P Reviewed The H&P was reviewed, patient examined and no changes noted. Date Seen by Provider: July 08, 2018 Time Seen by Provider: 07:05 Date H&P Reviewed: July 08, 2018 Time H&P Reviewed: 07:05 Pre-Operative Diagnosis: LT RENAL STONE NILTON KINGSTON MD July 08, 2018 07:05
--- NOTE | 2018-07-08 07:18 | Diagnostic Imaging Report ---
INDICATION: ESWL A supine view of the abdomen shows 13 mm calculus at the level of the left renal pelvis. No ureteral calculus is seen. No calculus on the right is seen. There are no abnormally dilated loops of bowel. There is no acute bony abnormality. IMPRESSION: There is a 13 mm calculus in the left renal pelvis. Dictated by: Dictated on workstation # [id number]
--- NOTE | 2018-07-08 07:20 | Progress Note-Post Operative ---
Post-Operative Progess Note Surgeon (s)/De Alcholizer (s) Surgeon NILTON KINGSTON MD De Alcholizer: NONE Pre-Operative Diagnosis LT RENAL STONE Post-Operative Diagnosis SAME Procedure & Operative Findings Date of Procedure 07/08/18 Procedure Performed/Findings LT ESWL Anesthesia Type GENERAL Estimated Blood Loss Estimated blood loss (mL): NONE Specimens/Packing Specimens Removed NONE Packing: NONE NILTON KINGSTON MD July 08, 2018 07:19
--- NOTE | 2018-07-08 07:22 | Discharge Inst-Urology ---
Discharge Inst-Urology Discharge Medications New, Converted, or Re-newed RX: RX on Chart Patient Instructions/Follow Up Plan Please make appointment to been seen in office Thursday 07/20. KUB prior to it KUB on way home Post ESWL instructions Increase oral fluids for 48 hours and then as needed. Diet and Activity as tolerated. If questions or concerns contact your physician Or seek help at emergency department. NILTON KINGSTON MD July 08, 2018 07:22
[2018-07-08] MEDS ORDERED: FUROSEMIDE 40 MG/4 ML INJ (LASIX) ONE (07:34)
[2018-07-08] MEDS ORDERED: KETOROLAC 30 MG/ML VIAL ONE (07:35)
[2018-07-08] MEDS ORDERED: ONDANSETRON 4 MG/2 ML (SDV) Z0FRAN IVP PRN (08:00)
[2018-07-08] MEDS ORDERED: HYDROmorphone 2 MG/ML VIAL (DILAUDID) IV ONE (08:00)
[2018-07-08] MEDS ORDERED: LACTATED RINGERS 1,000 ML IV SCH (08:00)
[2018-07-08] MEDS ORDERED: NITR-65 PO (08:34)
[2018-07-08] MEDS ORDERED: TAMS0.4C98 PO (08:34)
[2018-07-08] MEDS ORDERED: HYDROcodone/APAP 5 MG/325 MG (LORTAB) TAB ONE (09:14)
[2018-07-08] MEDS ORDERED: HYDROcodone/APAP 5 MG/325 MG (LORTAB) TAB PO ONE (09:30)
[2018-07-08] MEDS ORDERED: HYDROcodone/APAP 5 MG/325 MG (LORTAB) TAB PO NR (09:44)
--- NOTE | 2018-07-08 10:06 | OPERATIVE REPORT ---
DATE OF SERVICE: 07/08/2018 PREOPERATIVE DIAGNOSIS: Left renal stone. POSTOPERATIVE DIAGNOSIS: Left renal stone. OPERATION PERFORMED: Left ESWL. SURGEON: Lj Kingston MD. ANESTHESIA: General. COMPLICATIONS: None. DESCRIPTION OF PROCEDURE: Under satisfactory general anesthesia, the patient in supine position on the ESWL table, the left renal stone was localized. Shocks were delivered at kV of 4, total of 3000 shocks were delivered. The patient received 30 mg of Toradol and 40 mg of Lasix IV at the end of the procedure. She tolerated the procedure and anesthesia well, was sent to recovery room in stable condition. PLAN: If still not expected results of the ESWL as explained to the patient preoperatively, her other option would be a percutaneous nephrolithotripsy at which was also offered preoperatively but she elected to have ESWL again. Job ID: [id number] DocumentID: [id number] Dictated Date: 07/08/2018 07:35:54 Mechanical Oxidizer Date: 07/08/2018 10:05:56 Dictated By: LJ KINGSTON MD MTDD
--- NOTE | 2018-07-08 12:14 | Diagnostic Imaging Report ---
INDICATION: Post extracorporeal shockwave lithotripsy, nephrolithiasis. TECHNIQUE: 2 supine view of the abdomen 10:07 AM CORRELATION STUDY: 07/08/2018 FINDINGS: Overlying bowel gas and stool is present. 13 mm calcification over the central right renal silhouette is generally stable in appearance. May be very small new fragmentation at the inferior portion. Calcification of the pelvis appear unchanged likely vasculature. Prior hernia repair present. Significant degenerative change about the lumbar spine. Mild degenerative change bilateral hips. IMPRESSION: 1. No appreciable change in the appearance of the 13 mm calcification over the left renal silhouette. Dictated by: Dictated on workstation # [id number]
--- NOTE | 2018-07-08 12:31 | Anesthesia-General Post-Op ---
General Patient Condition Mental Status/LOC: Same as Preop Cardiovascular: Satisfactory Nausea/Vomiting: Absent Respiratory: Satisfactory Pain: Controlled Complications: Absent Post Op Complications Complications None Follow Up Care/Instructions Patient Instructions None needed. Anesthesia/Patient Condition Patient Condition Patient is doing well, no complaints, stable vital signs, no apparent adverse anesthesia problems. No complications reported per nursing. RON HUNG CRNA July 08, 2018 12:31
== END 2018-07-08 10:15 | disposition home or self-care (01) ==
LOC: SDC 06:00
PROVIDERS: ATTEND Urology
DX: N20.0 Calculus of kidney (principal); Z11.2 Encounter for screening for other bacterial diseases; E11.9 Type 2 diabetes mellitus without complications; I10 Essential (primary) hypertension; E78.00 Pure hypercholesterolemia, unspecified; N32.81 Overactive bladder; Z79.899 Other long term (current) drug therapy; Z79.84 Long term (current) use of oral hypoglycemic drugs
CPT/HCPCS: 74018; 87081

== ENCOUNTER → 2018-07-20 | Outpatient (CLI) | payer MEDICARE ==
--- NOTE | 2018-07-20 17:31 | Diagnostic Imaging Report ---
INDICATION: Lower abdominal pain. COMPARISON: 07/08/2018. FINDINGS: Two supine radiographic views of the abdomen were obtained and again show large calculus projecting over the expected position of the pelvis of the left kidney. It is essentially stable in position. No new unexpected extraosseous calcifications or radiopaque foreign bodies are seen. Small bowel loops are nondistended. Moderate colonic air and stool is noted. There is no large collection of free intraperitoneal air. Bony structures show age-related degenerative changes. IMPRESSION: 1. Stable-appearing left-sided renal calculus. 2. Moderate colonic air and stool. Please correlate for constipation. 3. Nonobstructed small bowel gas pattern. Dictated by: Dictated on workstation # [id number]
== END ==
LOC: RAD 12:19
PROVIDERS: ATTEND Urology
DX: N20.0 Calculus of kidney (principal)
CPT/HCPCS: 74018

== ENCOUNTER → 2018-07-21 | Outpatient (CLI) | payer MEDICARE ==
--- NOTE | 2018-07-21 21:27 | Diagnostic Imaging Report ---
INDICATION: Routine screening. Comparison is made with prior mammogram from 06/26/2017 and 06/04/2016. 2-D and 3-D bilateral screening mammography was performed with CAD. The current study was also evaluated with a Computer Aided Detection (CAD) system. 3-D tomosynthesis was also performed and reviewed. Scattered fibroglandular densities are identified bilaterally. No mass or malignant appearing microcalcifications are seen. Axillae are unremarkable. IMPRESSION: No mammographic features suspicious for malignancy are identified. ACR BI-RADS Category 1: Negative. Result letter will be mailed to the patient. Note: At least 10% of breast cancer is not imaged by mammography. Dictated by: Dictated on workstation # [id number]
== END ==
LOC: RAD 07:55
PROVIDERS: ATTEND Obstetrics & Gynecology
DX: Z12.31 Encounter for screening mammogram for malignant neoplasm of breast (principal)
CPT/HCPCS: 77067

== ENCOUNTER → 2019-03-26 | Outpatient (CLI) | payer MEDICARE ==
[~2019-03-26] MED LIST changes: +SIMV20TA26 PO; -SIMV20TA3 PO; -TAMS0.4C98 PO; +TMSL.4C PO
--- NOTE | 2019-03-26 09:49 | Diagnostic Imaging Report ---
PROCEDURE: US carotid duplex, bilateral. TECHNIQUE: Multiple real-time grayscale images were obtained over the carotid arteries in various projections, bilaterally. Additional spectral analysis and color Doppler duplex images were also obtained. INDICATION: Left carotid bruit. FINDINGS: Moderate calcified plaque is identified in the proximal left ICA. However, velocities are normal bilaterally. No velocity elevation or stenosis is seen. Both vertebral arteries show antegrade flow. IMPRESSION: Left carotid plaque. There is no evidence of a hemodynamically significant stenosis. Parameters based on the consensus panel Johnson-Scale and Doppler ultrasound criteria published December 2002, Radiology, Volume 229. DOPPLER (peak systolic velocity M/S Right Left CCA 1.1 1.3 ICA Proximal .86 .64 ICA Mid .97 .63 ICA Distal .85 .91 RATIO .9 .7 ECA 1.1 1.4 VERT .48 .53 Dictated by: Dictated on workstation # [id number]
== END ==
LOC: CARD 08:33
PROVIDERS: ATTEND Family Medicine
DX: I65.22 Occlusion and stenosis of left carotid artery (principal); I07.1 Rheumatic tricuspid insufficiency; R09.89 Other specified symptoms and signs involving the circulatory and respiratory systems; R60.9 Edema, unspecified
CPT/HCPCS: 93306; 93880

== ENCOUNTER → 2019-03-30 | Outpatient (CLI) | payer MEDICARE ==
--- NOTE | 2019-03-30 09:45 | Diagnostic Imaging Report ---
INDICATION: Postmenopausal screening for osteoporosis. COMPARISON: None. FINDINGS: AP Spine L1-L4: [BMD (g/cm2): 1.335] [T-Score: 1.1] [Z-Score: 1.7] [BMD Previous: NA] [BMD % Change: NA] LT Hip Neck: [BMD (g/cm2): 0.840] [T-Score: -1.4] [Z-Score: -0.4] LT Hip Total: [BMD (g/cm2):0.893] [T-Score:-0.9] [Z-Score: -0.1] [BMD Previous: NA] [BMD % Change: NA] RT Hip Neck: [BMD (g/cm2):0.938] [T-Score:-0.7] [Z-Score:0.3] RT Hip Total: [BMD (g/cm2):0.937] [T-score:-0.6] [Z-Score:0.2] [BMD Previous:NA] [BMD % Change:NA] *Indicates significant change from prior examination based on 95% confidence level. World Health Organization criteria for BMD interpretation classify patients as Normal (T-score at or above -1.0), Osteopenic (T-score between -1.0 and -2.5) or Osteoporotic (T-score at or below -2.5). LIMITATIONS AND MODIFICATION: None. FRACTURE RISK (FRAX SCORE): The ten year probability of (%): Major Osteoporotic Fracture: [NA] Hip Fracture: [NA] IMPRESSION: 1. Normal bone mineral density. 2. Baseline examination. 3. See below National Osteoporosis Foundation guidelines on when to potentially initiate pharmacologic therapy. Based on the National Osteoporosis Foundation Guidelines, pharmacologic treatment should be initiated in any of the following, unless clinical conditions suggest otherwise: * Any patient with prior fragility fracture of the hip or vertebrae. A spine fracture indicates 5X risk for subsequent spine fracture and 2X risk for subsequent hip fracture. * Osteoporosis (T-score <-2.5). * Postmenopausal women and men age 50 and older with low bone mass/osteopenia (T-score between -1.0 and -2.5) by DXA and 10-year major osteoporotic fracture greater than 20% or a 10-year probability of hip fracture greater than 3%. These fracture risks are supplied above in the FRAX score, if applicable. * Clinician judgement and/or patient preferences may indicate treatment for people with 10-year fracture probabilities above or below these levels. Dictated by: Dictated on workstation # [id number]
== END ==
LOC: RAD 08:46
PROVIDERS: ATTEND Family Medicine
DX: M85.80 Other specified disorders of bone density and structure, unspecified site (principal); Z78.0 Asymptomatic menopausal state
CPT/HCPCS: 77080

== ENCOUNTER 2019-04-15 20:50 | Outpatient (CLI) | payer MEDICARE | END 2019-04-16 06:30 | disposition home or self-care (01) | LOC: SLEEP 20:50 | PROVIDERS: ATTEND Family Medicine | DX: G47.33 Obstructive sleep apnea (adult) (pediatric) (principal); G47.10 Hypersomnia, unspecified; I10 Essential (primary) hypertension | CPT/HCPCS: 95810 ==

== ENCOUNTER → 2019-08-03 | Outpatient (CLI) | payer MEDICARE ==
--- NOTE | 2019-08-03 12:40 | Diagnostic Imaging Report ---
INDICATION: Routine screening. COMPARISON: 07/21/2018 and 06/26/2017. TECHNIQUE: 2D and 3D bilateral screening mammography was performed with CAD. FINDINGS: Scattered fibroglandular densities are identified bilaterally. The parenchymal pattern is stable. No mass or malignant appearing microcalcifications are seen. The axillae are unremarkable. IMPRESSION: No mammographic features suspicious for malignancy are identified. ACR BI-RADS Category 1: Negative. Result letter will be mailed to the patient. Note: At least 10% of breast cancer is not imaged by mammography. Dictated by: Dictated on workstation # [id number]
== END ==
LOC: RAD 07:47
PROVIDERS: ATTEND Obstetrics & Gynecology
DX: Z12.31 Encounter for screening mammogram for malignant neoplasm of breast (principal)
CPT/HCPCS: 77063; 77067

== ENCOUNTER → 2019-08-03 | Outpatient (CLI) | payer MEDICARE ==
--- NOTE | 2019-08-03 09:38 | Diagnostic Imaging Report ---
PROCEDURE: US Renal Bilateral. TECHNIQUE: Multiple real-time grayscale images were obtained over the kidneys in various projections bilaterally. INDICATION: Nephrolithiasis. Exam interpreted in correlation with nonenhanced abdominal pelvic CT dated 06/19/2018. The right kidney measured at 9.2 cm, the left 10.6 cm. Both are within normal limits of size. A shadowing echogenic right renal calculus measuring 6 mm at its mid 3rd present. The large stone on earlier CT within the left renal pelvis is not appreciable. The urinary bladder unremarkable. There is no convincing evidence for hydronephrosis. IMPRESSION: Nonobstructing right renal calculus present. Previous large stone at the level of the left renal pelvis is not appreciable at this exam. No hydronephrosis. Negative bladder. Dictated by: Dictated on workstation # [id number]
== END ==
LOC: RAD 08:07
DX: N20.0 Calculus of kidney (principal)
CPT/HCPCS: 76770

== ENCOUNTER → 2019-08-19 | Outpatient (CLI) | payer MEDICARE ==
[~2019-08-19] MED LIST changes: +MULT-567 PO; -MULT1TAB69 PO
== END ==
LOC: LABNPT 08:04
PROVIDERS: ATTEND Family Medicine
DX: Z01.812 Encounter for preprocedural laboratory examination (principal); Z20.828 Contact with and (suspected) exposure to other viral communicable diseases
CPT/HCPCS: 87635

== ENCOUNTER 2019-08-23 19:47 | Outpatient (CLI) | payer MEDICARE | END 2019-08-24 06:25 | disposition home or self-care (01) | LOC: SLEEP 19:47 | PROVIDERS: ATTEND Family Medicine | DX: G47.33 Obstructive sleep apnea (adult) (pediatric) (principal); G47.61 Periodic limb movement disorder; I10 Essential (primary) hypertension; R60.0 Localized edema | CPT/HCPCS: 95811 ==

== ENCOUNTER → 2020-02-21 | Outpatient (CLI) | payer MEDICARE ==
--- NOTE | 2020-02-21 13:37 | Diagnostic Imaging Report ---
PROCEDURE: US Renal Bilateral. TECHNIQUE: Multiple real-time grayscale images were obtained over the kidneys in various projections bilaterally. INDICATION: Kidney stones. FINDINGS: Right kidney measures 10.6 x 4.7 x 4.2 cm and left kidney measures 11.4 x 5.3 x 6.3 cm. Cortical thickness and echogenicity is normal. No calculi are seen. There is no hydronephrosis. Bilateral ureteral jets are visualized in the bladder. IMPRESSION: Unremarkable renal ultrasound. Dictated by: Dictated on workstation # [id number]
== END ==
LOC: RAD 11:45
PROVIDERS: ATTEND Urology
DX: N20.0 Calculus of kidney (principal)
CPT/HCPCS: 76770

== ENCOUNTER → 2020-02-29 | Outpatient (CLI) | payer MEDICARE ==
--- NOTE | 2020-02-29 16:07 | Diagnostic Imaging Report ---
INDICATION: RT HIP PAIN TECHNIQUE: 2 views of the right hip. CORRELATION STUDY: 07/20/2018 FINDINGS: There is moderate joint space narrowing. The femoral head and acetabular relationship otherwise maintained. There is mild osteophyte formation at the inferior aspect of the acetabulum. Bony trabecular pattern is intact. There is no acute fracture. Findings compatible with prior hernia repair in the bilateral inguinal region. IMPRESSION: 1. Negative for acute bony abnormality of the right hip. Moderately advanced degenerative changes are present. Dictated by: Dictated on workstation # [id number]
== END ==
LOC: RAD 13:57
PROVIDERS: ATTEND Family Medicine
DX: M25.551 Pain in right hip (principal)
CPT/HCPCS: 73502

== ENCOUNTER → 2020-10-30 | Outpatient (CLI) | payer MEDICARE ==
[~2020-10-30] MED LIST changes: -LISI-552 PO; +LISI20TA26 PO
--- NOTE | 2020-10-30 11:34 | Diagnostic Imaging Report ---
PROCEDURE: US Renal Bilateral. TECHNIQUE: Multiple real-time grayscale images were obtained over the kidneys in various projections bilaterally. INDICATION: Kidney stones. FINDINGS: Both kidneys measure approximately 10.5 cm in length. Cortex is well-maintained bilaterally. No mass is evident on either side. There is a 5 mm nonobstructing calculus seen in the mid right kidney. There is minimal pelvocaliectasis on the right as compared to the left. There are bilateral ureteral jets seen in the bladder with no abnormality of the bladder evident. IMPRESSION: There is a 5 mm nonobstructing calculus in the right kidney. There is minimal pelvocaliectasis present on the right. Dictated by: Dictated on workstation # [id number]
== END ==
LOC: RAD 09:00
PROVIDERS: ATTEND Urology
DX: N20.0 Calculus of kidney (principal)
CPT/HCPCS: 76770

== ENCOUNTER → 2021-11-05 | Outpatient (CLI) | payer MEDICARE ==
--- NOTE | 2021-11-05 11:45 | Diagnostic Imaging Report ---
INDICATION: Routine screening. Comparison is made with prior mammogram from 08/28/2020 and 08/03/2019. 2-D and 3-D bilateral screening mammography was performed with CAD. CAD is utilized. The current study was also evaluated with a Computer Aided Detection (CAD) system. Scattered fibroglandular densities are identified bilaterally. The parenchymal pattern is stable. No mass or malignant-appearing microcalcifications are seen. Axillae are unremarkable. IMPRESSION: BI-RADS Category 1 No mammographic features suspicious for malignancy are identified. ACR BI-RADS Category 1: Negative. Result letter will be mailed to the patient. Note: At least 10% of breast cancer is not imaged by mammography. Dictated by: Dictated on workstation # [id number]
== END ==
LOC: RAD 10:29
PROVIDERS: ATTEND Family Medicine
DX: Z12.31 Encounter for screening mammogram for malignant neoplasm of breast (principal)
CPT/HCPCS: 77063; 77067

== ENCOUNTER → 2022-11-07 | Outpatient (CLI) | payer MEDICARE ==
--- NOTE | 2022-11-07 13:55 | Diagnostic Imaging Report ---
Indication: Routine screening. Comparison is made with prior mammogram from 11/05/2021 and 08/28/2020. 2-D and 3-D bilateral screening mammography was performed with CAD. The current study was also evaluated with a Computer Aided Detection (CAD) system. Scattered fibroglandular densities are identified bilaterally. The parenchymal pattern is stable. No mass or malignant-appearing microcalcifications are seen. Axillae are unremarkable. IMPRESSION: BI-RADS Category 1 No mammographic features suspicious for malignancy are identified. ACR BI-RADS Category 1: Negative. Result letter will be mailed to the patient. Note: At least 10% of breast cancer is not imaged by mammography. Dictated by: Dictated on workstation # [id number]
== END ==
LOC: RAD 10:09
PROVIDERS: ATTEND Family Medicine
DX: Z12.31 Encounter for screening mammogram for malignant neoplasm of breast (principal)
CPT/HCPCS: 77063; 77067